=== PATIENT | female | born 1995 | race Caucasian/White ===

== ENCOUNTER 2022-01-28 08:33 | Emergency (ER) | payer OTHER, SELFPAY ==
[2022-01-28 09:00] VITALS: BP 118/81; PULSE 98; RESP 16; TEMP 36.8; O2SAT 99
--- NOTE | 2022-01-28 09:20 | ED.GENADULT ---
HPI - General Adult General Chief complaint: Upper Respiratory Infection Stated complaint: sore throat Source: patient Mode of arrival: ambulatory Limitations: no limitations History of Present Illness HPI narrative: Patient presents for evaluation of sore throat for the last 2 days. She denies any fever, chills, nausea, vomiting number cough, shortness of breath. She reports fullness in both ears. She was exposed to COVID four days ago. No other recent sick contacts. She had COVID over the summer of 2021. She has received COVID vaccination and a booster. She does not smoke. She lives with her parents and neither of them are sick. No additional complaints or concerns. Related Data Home Medications Medication Instructions Recorded Confirmed bupropion HCl 150 mg 24 hr tablet, mg PO 01/28/22 extended release sertraline 50 mg tablet mg 01/28/22 Allergies Allergy/AdvReac Type Severity Reaction Status Date / Time No Known Allergies Allergy Mild Verified 07/04/14 20:31 red dye Allergy Unknown VOMITING Unverified 07/04/14 20:31 Review of Systems Review of Systems: CONSTITUTIONAL: Denies fever, chills, or sweats. EYES: Denies visual changes, redness, or discharge. ENT: reports sore throat.Denies rhinorrhea, congestion, or otalgia. CARDIOVASCULAR: Denies chest pain, palpitations, or edema. RESPIRATORY: Denies cough or dyspnea. GASTROINTESTINAL: Denies abdominal pain, nausea, vomiting, or diarrhea. GENITOURINARY: Denies dysuria or hematuria. SKIN: Denies rash or itching. MUSCULOSKELETAL: Denies back pain, joint pain, or myalgia. NEUROLOGIC: Denies headache, numbness, dizziness, or weakness. PSYCHIATRIC: Denies anxiety or depression. [facility] Past Medical History Medical History No pertinent past medical history Surgical History Surgical History H/O adenoidectomy Family History Family History Mother Family history non-contributory Social History Social History Smoking status: Never smoker Substance use: never Gender identity (if verbalized by the patient): Female Spiritual care concerns: No Exam Narrative: GENERAL: Well-appearing, well-nourished, and in no acute distress. HEAD: Normocephalic, atraumatic. EYES: PERRLA and EOMI. ENT: Nares clear, no rhinorrhea or epistaxis. Mucous membranes moist. There is some posterior pharyngeal erythema without exudate. Uvula is midline. Bilateral TMs pearly vasquez nonbulging NECK: Supple. No adenopathy or masses. No carotid bruits or JVD CHEST: Clear to auscultation. No respiratory distress. No wheezes rales or rhonchi HEART: Regular rate and rhythm. No murmur heard. Normal peripheral pulses. ABDOMEN: Soft, nontender, nondistended, normal active bowel sounds. EXTREMITIES: Normal range of motion. No edema. SKIN: Warm, dry, no rash. NEURO: No focal deficits. Alert and oriented x3. PSYCH: Normal mood and affect. Course Course Emergency Course: This is a 26-year-old female who presented for evaluation of sore throat. Unfortunately we do not have rapid strep testing available. Will send for culture. Start amoxicillin. Increase hydration. OTC medications for symptom management. Follow up with primary this coming week. Go to the ER for difficulty breathing or swallowing. Pt in agreement with plan of care. Level of Care: Express Care Visit Vital Signs Vital signs: Vital Signs Temperature 36.8 C 01/28/22 09:00 Pulse Rate 98 01/28/22 09:00 Respiratory Rate 16 01/28/22 09:00 Blood Pressure 118/81 01/28/22 09:00 Pulse Oximetry 99 01/28/22 09:00 Temperature 36.8 C 01/28/22 09:00 Pulse Rate 98 01/28/22 09:00 Respiratory Rate 16 01/28/22 09:00 Blood Pressure 118/81 01/28/22 09:0
== END 2022-01-28 09:25 | disposition home or self-care (01) ==
PROVIDERS: Emergency Provider Nurse Practitioner
DX: J02.9 Acute pharyngitis, unspecified (principal)
CPT/HCPCS: 87081; 99203; G0463

== ENCOUNTER 2022-03-29 08:58 | Emergency (ER) | payer OTHER, SELFPAY ==
[2022-03-29 09:11] VITALS: BP 113/66; PULSE 87; RESP 20; TEMP 36.6; O2SAT 99
--- NOTE | 2022-03-29 09:38 | ED.URI ---
HPI - URI/Sore Throat General Chief Complaint: Upper Respiratory Infection Stated Complaint: sore throat Time Seen by Provider: 03/29/22 09:34 Source: patient Mode of arrival: ambulatory Limitations: no limitations History of Present Illness HPI Narrative: Patient presents today with a 4 day history of sore throat and congestion that started today. She currently rates her pain 2/10, which increases with swallowing. She has been taking DayQuil, NyQuil, and ibuprofen with mild relief. She did have exposure to strep throat. Related Data Home Medications Medication Instructions Recorded Confirmed bupropion HCl 150 mg 24 hr tablet, 150 mg PO DAILY 01/28/22 extended release sertraline 50 mg tablet 50 mg PO DAILY 01/28/22 Allergies Allergy/AdvReac Type Severity Reaction Status Date / Time No Known Allergies Allergy Mild Verified 03/29/22 09:27 red dye Allergy Unknown VOMITING Unverified 03/29/22 09:27 Review of Systems Review of Systems: CONSTITUTIONAL: Denies body aches, fever, chills, or sweats. EYES: Denies visual changes, redness, or discharge. ENT: Denies rhinorrhea, or otalgia.+ sore throat, congestion CARDIOVASCULAR: Denies chest pain, palpitations, or edema. RESPIRATORY: Denies cough or dyspnea. GASTROINTESTINAL: Denies abdominal pain, nausea, vomiting, or diarrhea. GENITOURINARY: Denies dysuria or hematuria. SKIN: Denies rash, itching, or wounds. MUSCULOSKELETAL: Denies back pain, joint pain, or myalgia. NEUROLOGIC: Denies headache, numbness, tingling, or weakness. PSYCH: Denies depression or anxiety. [facility] Past Medical History Medical History No pertinent past medical history Surgical History Surgical History H/O adenoidectomy Family History Family History Mother Family history non-contributory Social History Social History Smoking status: Never smoker Substance use: never Living arrangements: with family Gender identity (if verbalized by the patient): Female Spiritual care concerns: No Comments At time of signature, I have reviewed and agree with nursing past medical, surgical, social and family history unless otherwise noted. Please see nursing chart for further information. There is no relevant family history pertinent to the presenting complaint Exam Narrative: GENERAL: Well-appearing, well-nourished, and in no acute distress. HEAD: Normocephalic, atraumatic. EYES: EOMI. No redness or drainage. Conjunctivae normal. ENT: Mucous membranes pink and moist. Nares clear. No rhinorrhea. TMs normal bilaterally. Throat erythematous without edema or exudate. Uvula midline. NECK: Normal AROM. Supple. No lymphadenopathy. CHEST: No respiratory distress. Clear to auscultation. HEART: Regular rate and rhythm. No murmur appreciated. EXTREMITIES: Normal range of motion. No edema. SKIN: Warm, dry, no rash. Capillary refill normal. Normal skin turgor. NEURO: No focal deficits. Alert and oriented x3. Gait steady. PSYCH: Normal affect. No signs of depression or anxiety. Course Course Level of Care: Express Care Visit Vital Signs Vital signs: Vital Signs Temperature 98 F 03/29/22 09:11 Pulse Rate 87 03/29/22 09:11 Respiratory Rate 20 03/29/22 09:11 Blood Pressure 113/66 03/29/22 09:11 Pulse Oximetry 99 03/29/22 09:11 Temperature 98 F 03/29/22 09:11 Pulse Rate 87 03/29/22 09:11 Respiratory Rate 20 03/29/22 09:11 Blood Pressure 113/66 03/29/22 09:11 Pulse Oximetry 99 03/29/22 09:11 Reviewed MDM - URI/Sore Throat MDM Narrative Medical decision making narrative: Rapid strep negative. Culture pending. No prescriptions indicated at this time. Symptoms likely viral in nature. Anticipatory gu
== END 2022-03-29 09:44 | disposition home or self-care (01) ==
PROVIDERS: Emergency Provider Nurse Practitioner
DX: J06.9 Acute upper respiratory infection, unspecified (principal)
CPT/HCPCS: 87081; 87880; 99213; G0463

== ENCOUNTER 2022-06-27 08:59 | Emergency (ER) | payer OTHER, SELFPAY ==
--- NOTE | 2022-06-27 09:00 | ED.URI ---
HPI - URI/Sore Throat General Chief Complaint: Upper Respiratory Infection Stated Complaint: COUGH/SINUS/R EAR Time Seen by Provider: 06/27/22 09:00 Source: patient Mode of arrival: ambulatory Limitations: no limitations History of Present Illness HPI Narrative: Precious is a 26-year-old female patient presenting to the clinic today with complaints of cough, sinus drainage/nasal congestion, and right ear discomfort times 2 days. She reports no known fever or chills. Nasal drainage is clear. No known exposure to anyone with COVID, flu, or strep. MD elicited complaint: cough, nasal congestion and other (Right ear pain) Related Data Home Medications Medication Instructions Recorded Confirmed bupropion HCl 150 mg 24 hr tablet, 150 mg PO DAILY 01/28/22 06/27/22 extended release sertraline 50 mg tablet 50 mg PO DAILY 01/28/22 06/27/22 cetirizine 10 mg capsule (Zyrtec) 10 mg PO DAILY 06/27/22 06/27/22 cholecalciferol (vitamin D3) 125 125 mcg PO DAILY 06/27/22 06/27/22 mcg (5,000 unit) disintegrating tablet Allergies Allergy/AdvReac Type Severity Reaction Status Date / Time No Known Allergies Allergy Mild Verified 06/27/22 09:07 Review of Systems Review of Systems: Pertinent positives per HPI. Patient denies any fever, chills, rash, headache, visual changes, dizziness, shortness of breath, chest pain, palpitations, nausea, vomiting, diarrhea, constipation, abdominal pain, or any urinary issues. [facility] Past Medical History Medical History No pertinent past medical history Surgical History Surgical History H/O adenoidectomy Family History Family History Mother Family history non-contributory Social History Social History Smoking status: Never smoker Substance use: never Living arrangements: with family Gender identity (if verbalized by the patient): Female Spiritual care concerns: No Comments At the time of my signature, I reviewed and agree with the nursing past medical, surgical, social, and family history. There is no relevant family history pertinent to the patient complaint. Exam Narrative: General: Well-developed, well nourished, in no apparent distress Head: Normocephalic, atraumatic Eyes: Pupils equally round and reactive to light bilaterally, EOM intact, sclera and conjunctive clear, no discharge, lids normal Ears: Left TM intact, clear, fluid noted behind TM, Right TM intact, bulging, red, ear canals clear, no drainage, grossly hearing normal. Nose: Nares patent, clear nasal discharge, no inflammation, no sinus tenderness. Mouth: Oral pharynx without lesions or masses, good dentition, MMM. Neck: Supple, trachea midline, no enlargement of anterior or posterior cervical nodes, no thyroid masses or goiter palpable. Cardio: Regular rate and rhythm, s1 and s2 normal, no murmur appreciated. Resp: Clear to auscultation bilaterally, no rhonchi, rales, wheezing or rubs Course Course Emergency Course: Portions of this record may have been created with voice recognition software. Level of Care: Express Care Visit Vital Signs Vital signs: Vital signs reviewed MDM - URI/Sore Throat MDM Narrative Medical decision making narrative: At the time of visit patient is resting comfortably on the exam table. I suspect patient has right otitis media and upper respiratory infection. Prescription for prednisone and amoxicillin was sent to the pharmacy. Supportive measures were discussed with the patient she voiced understanding discharge instructions and agrees to treatment plan. Differential Diagnosis Differential diagnosis: Likely upper respiratory infection, otitis media, sinusitis, viral infection, bronchitis, influenza, pharyngitis and
[2022-06-27 09:08] VITALS: BP 120/63; PULSE 96; RESP 16; TEMP 37.1; O2SAT 97
[2022-06-27 09:09] VITALS: BP 120/63; PULSE 96; RESP 16; TEMP 37.1; O2SAT 97
== END 2022-06-27 09:18 | disposition home or self-care (01) ==
PROVIDERS: Emergency Provider Nurse Practitioner Family
DX: J06.9 Acute upper respiratory infection, unspecified (principal); H66.91 Otitis media, unspecified, right ear
CPT/HCPCS: 99213; G0463

== ENCOUNTER 2023-03-09 16:05 | Emergency (ER) | payer BC, SELFPAY ==
[2023-03-09 16:09] VITALS: BP 121/75; PULSE 68; RESP 16; TEMP 36.5; O2SAT 100
--- NOTE | 2023-03-09 16:16 | ED.URI ---
HPI - URI/Sore Throat General Chief Complaint: Upper Respiratory Infection Stated Complaint: Sore Throat Source: patient, RN notes reviewed and old records reviewed Mode of arrival: ambulatory Limitations: no limitations History of Present Illness HPI Narrative: 27-year-old female presents to [facility] with complaints cough, congestion, sore throat, myalgia, headache, bilateral ear pressure, fatigue this started yesterday. Patient taking [id number] medications with little relief. Patient denies chest pain, shortness of breath, weakness, dizziness Related Data Home Medications Medication Instructions Recorded Confirmed bupropion HCl 150 mg 24 hr tablet, 150 mg PO DAILY 01/28/22 03/09/23 extended release sertraline 50 mg tablet 50 mg PO DAILY 01/28/22 03/09/23 cetirizine 10 mg capsule (Zyrtec) 10 mg PO DAILY 06/27/22 03/09/23 cholecalciferol (vitamin D3) 125 125 mcg PO DAILY 06/27/22 03/09/23 mcg (5,000 unit) disintegrating tablet Allergies Allergy/AdvReac Type Severity Reaction Status Date / Time No Known Allergies Allergy Mild Verified 03/09/23 16:11 Review of Systems Constitutional: Constitutional: Reports no additional constitutional complaints, Reports body ache(s), Denies chills, Reports fatigue, Denies fever(s) and Reports headache(s) Eyes: Eyes: Reports no additional eye complaints and Denies blurry vision ENT: Reports system reviewed and no additional complaints, except as documented, Denies vertigo, Denies dizziness, Denies ear discharge, Reports otalgia, Denies facial pain, Denies headache(s), Denies nasal congestion, Reports nasal discharge, Denies sinus pain, Denies sinus pressure and Reports sore throat Cardiovascular: Cardiovascular: Reports no additional cardiovascular complaints, Denies chest pain, Denies chest pain at rest, Denies rapid heart rate and Denies dyspnea Respiratory: Respiratory: Reports no additional respiratory complaints, Denies chest congestion, Reports cough, Denies pain on inspiration, Denies pain with cough and Denies dyspnea Gastrointestinal: Gastrointestinal: Denies abdominal pain, Denies diarrhea, Denies nausea and Denies vomiting Integumentary/Breasts: Skin/Breast: Denies rash Neurologic: Reports system reviewed and no additional complaints, except as documented, Denies vertigo, Denies dizziness and Denies headache(s) Endocrine: Endocrine: Denies fatigue PMFSH Past Medical History Medical History No pertinent past medical history Surgical History Surgical History H/O adenoidectomy Family History Family History Mother Family history non-contributory Social History Social History Smoking status: Never smoker Substance use: never Living arrangements: with family Gender identity (if verbalized by the patient): Female Spiritual care concerns: No Comments At the time of my signature, I reviewed and agree with the nursing past medical, surgical, social, and family history. There is no relevant family history pertinent to the patient complaint. Exam Const: General: cooperative, healthy appearing, no acute distress and well nourished Nutritional Appearance: well nourished Orientation/consciousness: patient oriented x3 Limitations: no limitations HENMT: Head: normal to inspection and normocephalic Ears: external ears normal, TM normal on the right, mastoids normal, Abnormal EAC present and TM abnormal wth effusion serous on the left Face/Nose/Sinus: normal facial exam Face and sinus: normal facial exam Mouth: Yes Normal oral and palatal mucosa present, Yes oropharynx normal and Yes moist mucous membranes Throat: tonsils normal, uvula midline, posterior oropharynx abnormal and no uvular edema Eyes: General: appearance
== END 2023-03-09 16:42 | disposition home or self-care (01) ==
PROVIDERS: Emergency Provider Registered Nurse
DX: B34.9 Viral infection, unspecified (principal); Z20.822 Contact with and (suspected) exposure to COVID-19
CPT/HCPCS: 87081; 87426; 87880; 99213; G0463

== ENCOUNTER 2024-12-06 16:12 | Emergency (ER) | payer OTHER, SELFPAY ==
--- NOTE | 2024-12-06 16:16 | ED.URI ---
HPI - URI/Sore Throat General Chief Complaint: Upper Respiratory Infection Stated Complaint: SORE THROAT Source: patient and RN notes reviewed Mode of arrival: ambulatory Limitations: no limitations History of Present Illness HPI Narrative: Patient is a 29-year-old female who presents to the [facility] with complaints of sore throat, right ear pain, and congestion since Thursday. She denies known fevers but reports chills. She denies cough or shortness of breath. Patient works in an elementary school. Related Data Home Medications ?Medication ?Instructions ?Recorded ?Confirmed ?Last Taken ?Type bupropion HCl 150 mg 24 hr tablet, 150 mg PO DAILY 01/28/22 03/09/23 Unknown History extended release sertraline 50 mg tablet 50 mg PO DAILY 01/28/22 03/09/23 Unknown History cetirizine 10 mg capsule (Zyrtec) 10 mg PO DAILY 06/27/22 03/09/23 Unknown History cholecalciferol (vitamin D3) 125 125 mcg PO DAILY 06/27/22 03/09/23 Unknown History mcg (5,000 unit) disintegrating tablet Allergies Allergy/AdvReac Type Severity Reaction Status Date / Time No Known Allergies Allergy Mild Verified 03/09/23 16:11 Review of Systems Review of Systems: CONSTITUTIONAL: Denies fever, chills, or sweats. EYES: Denies visual changes, redness, or discharge. ENT: Reports otalgia and sore throat. Reports congestion. CARDIOVASCULAR: Denies chest pain, palpitations, or edema. RESPIRATORY: Denies cough or dyspnea. GASTROINTESTINAL: Denies abdominal pain, nausea, vomiting, or diarrhea. GENITOURINARY: Denies dysuria or hematuria. SKIN: Denies rash or itching. MUSCULOSKELETAL: Denies back pain, joint pain, or myalgia. NEUROLOGIC: Denies headache, numbness, or weakness. Pertinent positives per HPI. [facility] Past Medical History Medical History No pertinent past medical history Surgical History Surgical History H/O adenoidectomy Family History Family History Mother Family history non-contributory Social History Social History Smoking status: Never smoker Substance use: never Living arrangements: with family Gender identity (if verbalized by the patient): Female Spiritual care concerns: No Comments At the time of my signature, I reviewed and agree with the nursing past medical, surgical, social, and family history. There is no relevant family history pertinent to the patient complaint. Exam Narrative: GENERAL: This is a well-nourished, well-developed patient, in no apparent distress. HEAD: normocephalic, atraumatic. EYES: Sclera clear/white. Vision is grossly intact. EARS: External ears normal, auditory canals clear and without drainage Left TMs normal without perforation. Right TM erythematous and bulging. Hearing grossly intact. NOSE: External nose normal with no obvious nasal discharge, nares without redness, no rhinorrhea. THROAT: Mucous membranes moist, oropharyngeal erythema without exudate. NECK: Neck supple, non-tender without lymphadenopathy, masses or thyromegaly. CARDIOVASCULAR: Regular rate and rhythm without murmurs, gallops, or rubs. RESPIRATORY: Clear to auscultation. Breath sounds equal bilaterally. No wheezes, rales, or rhonchi. GASTROINTESTINAL: Abdomen soft, non-tender, nondistended. Bowel sounds are active. No hepato-splenomegaly, or palpable masses. No guarding. SKIN: warm, intact with no suspicious lesions or rash, good texture and turgor. NEURO: awake, alert, and oriented to person, place and time. There were no obvious focal neurologic abnormalities. EXTREMITIES: No clubbing, cyanosis, or edema. No joint tenderness, effusion, or edema noted. BACK: Nontender without deformity or crepitance. No flank tenderness. Course Course Level of Care: Express Care Visit Vital Signs Vital signs: Vital Signs Temperature 97.5 F L 12/06/24 16:27 Pulse Rate 87 12/06/24 16:27 Respiratory Rate 16 12/06/24 16:27 Blood Pressure 108/77 12/06/24 16:27 Pulse Oximetry 100 12/06/24 16:27 Temperature 97.5 F L 12/06/24 16:27 Pulse Rate 87 12/06/24 16:27 Respiratory Rate 16 12/06/24 16:27 Blood Pressure 108/77 12/06/24 16:27 Pulse Oximetry 100 12/06/24 16:27 Reviewed MDM - URI/Sore Throat MDM Narrative Medical decision making narrative: Take antibiotics as directed. May given ibuprofen and/or Tylenol as needed for pain and/or fever. Follow up with primary care provider in 7-10 days to have ear rechecked. Differential Diagnosis Differential diagnosis: Likely upper respiratory infection, otitis media, viral infection, pharyngitis and other (strep) Lab Data Attestation: I reviewed the patient's lab results. Critical Care Time Critical Care Time Critical Care Time: No Discharge Plan Discharge Clinical Impression: Acute right otitis media Patient Disposition: Home Condition: Stable Instructions: Antibiotic Form, Ear Infection (ED) Additional Instructions: Take antibiotics as directed. May given ibuprofen and/or Tylenol as needed for pain and/or fever. Follow up with primary care provider in 7-10 days to have ear rechecked. Patient Language: Lao Prescriptions: New amoxicillin-pot clavulanate 875-125 mg tablet 1 tablet PO Q12H 10 Days Qty: 20 0RF No Action sertraline 50 mg tablet 50 mg PO DAILY bupropion HCl 150 mg tablet extended release 24 hr 150 mg PO DAILY Zyrtec 10 mg Capsule 10 mg PO DAILY cholecalciferol (vitamin D3) 125 mcg (5,000 unit) Tablet,Disintegrating 125 mcg PO DAILY Follow-up/Referrals: UNKNOWN,DOCTOR [Non-Staff] Time of Disposition: 16:30
[2024-12-06 16:27] VITALS: BP 108/77; PULSE 87; RESP 16; TEMP 36.4; O2SAT 100
[2024-12-06 16:36] LABS: EDSTREPNEGPOS1 Negative (Negative)
== END 2024-12-06 16:36 | disposition home or self-care (01) ==
PROVIDERS: Emergency Provider Nurse Practitioner
DX: H66.91 Otitis media, unspecified, right ear (principal)
CPT/HCPCS: 87081; 87880; 99213; G0463

== ENCOUNTER 2024-12-23 17:59 | Emergency (ER) | payer OTHER, SELFPAY ==
[2024-12-23 18:02] VITALS: BP 118/80; PULSE 89; RESP 16; TEMP 36.4; O2SAT 100
--- NOTE | 2024-12-23 19:02 | ED.URI ---
HPI - URI/Sore Throat General Chief Complaint: Upper Respiratory Infection Stated Complaint: Sore Throat/ear Pain Time Seen by Provider: 12/23/24 18:50 Source: patient and RN notes reviewed Mode of arrival: ambulatory Limitations: no limitations History of Present Illness HPI Narrative: 29-year-old female presents Express Care complaining of upper respiratory symptoms for approximately 2 weeks. Patient was seen here approximately 1 week ago, diagnosed with a right-sided otitis media. Discharged and sent home with Augmentin. Patient took the medication as directed finish the full course completely and however she reports stopping symptoms. Patient said symptoms never got better while on antibiotics. Patient continues to have right ear pain along with a sore throat and a cough. Patient denies any fevers, eczema chills, nausea, vomiting, diarrhea, chest pain, difficulty breathing, any other symptoms. Patient denies any significant past medical history. Related Data Home Medications ?Medication ?Instructions ?Recorded ?Confirmed ?Last Taken ?Type bupropion HCl 150 mg 24 hr tablet, 150 mg PO DAILY 01/28/22 03/09/23 Unknown History extended release sertraline 50 mg tablet 50 mg PO DAILY 01/28/22 03/09/23 Unknown History cholecalciferol (vitamin D3) 125 125 mcg PO DAILY 06/27/22 03/09/23 Unknown History mcg (5,000 unit) disintegrating tablet Allergies Allergy/AdvReac Type Severity Reaction Status Date / Time No Known Allergies Allergy Mild Verified 12/23/24 18:08 Review of Systems Review of Systems: CONSTITUTIONAL: Denies fever, chills, or sweats. EYES: Denies visual changes, redness, or discharge. ENT: Denies rhinorrhea, congestion. Positive for sore throat and otalgia. CARDIOVASCULAR: Denies chest pain, palpitations, or edema. RESPIRATORY: Positive for cough. Negative for wheezing or dyspnea. GASTROINTESTINAL: Denies abdominal pain, nausea, vomiting, or diarrhea. GENITOURINARY: Denies dysuria or hematuria. SKIN: Denies rash or itching. MUSCULOSKELETAL: Denies back pain, joint pain, or myalgia. NEUROLOGIC: Denies headache, numbness, or weakness. PSYCHIATRIC: Denies anxiety or depression. All other systems reviewed are negative, except as documented in HPI. [facility] Past Medical History Medical History No pertinent past medical history Surgical History Surgical History H/O adenoidectomy Family History Family History Mother Family history non-contributory Social History Social History Smoking status: Never smoker Substance use: never Living arrangements: with family Gender identity (if verbalized by the patient): Female Spiritual care concerns: No Comments At the time of my signature, I reviewed and agree with the nursing past medical, surgical, social, and family history. There is no relevant family history pertinent to the patient complaint. Exam Narrative: GENERAL: This is a well-nourished, well-developed adult, in no apparent distress. They are non ill-appearing, nontoxic appearing. HEAD: normocephalic, atraumatic. EYES: Sclera clear/white. Conjunctiva normal. Vision is grossly intact. Extraocular movements intact EARS: External ears normal, auditory canals clear and without drainage, TMs normal without perforation. Hearing grossly intact. NOSE: External nose normal with no obvious nasal discharge, nasal turbinates erythematous, no rhinorrhea. THROAT: Mucous membranes moist, posterior pharynx erythematous.Uvula midline. Postnasal drip present. NECK: Neck supple, mild cervical lymphadenopathy, without masses or thyromegaly. CARDIOVASCULAR: Regular rate and rhythm without murmurs, gallops, or rubs. RESPIRATORY: Clear to auscultation. Breath sounds equal bilaterally. No wheezes, rales, or rhonchi. SKIN: warm, Dry, intact with no suspicious lesions or rash, good texture and turgor. NEURO: awake, alert, and oriented to person, place and time. There were no obvious focal neurologic abnormalities. EXTREMITIES: No joint tenderness, effusion, or edema noted. BACK: Nontender without deformity. Course Course Emergency Course: Portions of this record may have been created with voice recognition software Level of Care: Express Care Visit Vital Signs Vital signs: Vital Signs Temperature 97.5 F L 12/23/24 18:02 Pulse Rate 89 12/23/24 18:02 Respiratory Rate 16 12/23/24 18:02 Blood Pressure 118/80 12/23/24 18:02 Pulse Oximetry 100 12/23/24 18:02 Oxygen Delivery Room Air 12/23/24 18:02 Temperature 97.5 F L 12/23/24 18:02 Pulse Rate 89 12/23/24 18:02 Respiratory Rate 16 12/23/24 18:02 Blood Pressure 118/80 12/23/24 18:02 Pulse Oximetry 100 12/23/24 18:02 Oxygen Delivery Room Air 12/23/24 18:02 Reviewed MDM - URI/Sore Throat MDM Narrative Medical decision making narrative: No evidence of your infection. Appears patient has pharyngitis, she had a negative strep 1 week ago. since symptoms have persisted for last 2 weeks will go ahead and treat her with cefdinir. Discussed physical exam findings. Advised supportive measures and signs/symptoms to go to the ER. Pt is appropriate for outpt treatment and f/u. Differential Diagnosis Differential diagnosis: Likely upper respiratory infection, otitis media, sinusitis, viral infection and pharyngitis Critical Care Time Critical Care Time Critical Care Time: No Discharge Plan Discharge Clinical Impression: Pharyngitis Qualifiers: Pharyngitis/tonsillitis etiology: unspecified etiology Qualified Code(s): J02.9 - Acute pharyngitis, unspecified Patient Disposition: Home Condition: Stable Instructions: Antibiotic Form, Pharyngitis (ED) Additional Instructions: Take the antibiotics as directed and complete the course even if you start to feel better. You may use a Neti pot saline rinse 3 times a day with lukewarm distilled water Continue to take Tylenol or Motrin for pain or fevers. Follow The instructions on the bottle. Use a humidifier or vaporizer at night. Drink plenty of water. 8-10 glasses per day. Use flonase 2 times per day for 5 days then as needed Take mucinex 2 times per day and be sure to take with 8oz of water. Follow up with Primary provider in 3-5 days Please go to the ER if he develops any difficulty breathing, worsening symptoms, chest pains, vomiting, or any other serious concerns Patient Language: Greek Prescriptions: New cefdinir 300 mg capsule 300 mg PO Q12H 10 Days Qty: 20 0RF No Action sertraline 50 mg tablet 50 mg PO DAILY bupropion HCl 150 mg tablet extended release 24 hr 150 mg PO DAILY cholecalciferol (vitamin D3) 125 mcg (5,000 unit) Tablet,Disintegrating 125 mcg PO DAILY Follow-up/Referrals: [facility] [Primary Care Provider, Internal Medicine] Time of Disposition: 19:00
== END 2024-12-23 19:06 | disposition home or self-care (01) ==
DX: J02.9 Acute pharyngitis, unspecified (principal)
CPT/HCPCS: 99213; G0463